=== PATIENT | male | born 1980 | race Caucasian/White ===

== ENCOUNTER 2019-01-18 18:32 | Emergency (ER) | payer BC, OTHER ==
[2019-01-18] MEDS ORDERED: Acetaminophen/oxyCODONE 325-5 MG Tab PO ONE (18:49)
--- NOTE | 2019-01-18 19:17 | EDM.PDOC ---
ED HPI GENERAL MEDICAL PROBLEM - General Chief Complaint: Upper Extremity Injury/Pain Stated Complaint: CUT POINTER FINGER RIGHT HAND Time Seen by Provider: 01/18/19 18:36 Source of Information: Reports: Patient History Limitations: Reports: No Limitations - History of Present Illness INITIAL COMMENTS - FREE TEXT/NARRATIVE: 38-year-old male presents for evaluation and treatment of injury to the right pointer finger. Patient reports prior to arrival in the ER he was roping and had the rope wrapped around his hand. He states that they finger got caught in between the rope and the saddle horn. He has skin avulsion to the finger and is experiencing significant pain. Tetanus is up-to-date. Onset: Today Location: Reports: Upper Extremity, Right Right Finger-Index Pain Score (Numeric/FACES): 8 - Related Data Allergies Allergy/AdvReac Type Severity Reaction Status Date / Time No Known Allergies Allergy Verified 01/18/19 19:08 Home Meds: Home Meds Acetaminophen/oxyCODONE [Percocet 325-5 MG] 1 tab PO Q4HR PRN #20 tab 01/18/19 [ Rx] cephALEXin [Cephalexin] 500 mg PO BID #20 capsule 01/18/19 [Rx] Past Medical History - Past Health History Medical/Surgical History: Denies Medical/Surgical History Social & Family History - Tobacco Use Smoking Status *Q: Never Smoker Review of Systems - Review of Systems Review Of Systems: See Below Musculoskeletal: Reports: Hand Pain (Right hand second finger) Skin: Reports: Wound (Right second finger) Neurological: Denies: Numbness, Tingling ED EXAM, GENERAL - Physical Exam Exam: See Below Exam Limited By: No Limitations General Appearance: Alert, WD/WN, Mild Distress Respiratory/Chest: No Respiratory Distress Cardiovascular: Normal Peripheral Pulses, Regular Rate, Rhythm Peripheral Pulses: 3+: Radial (R) Extremities: Normal Range of Motion (Patient has full range of motion to the right hand second finger, able to flex and extend the finger.), Normal Capillary Refill Neurological: Alert, Oriented, Normal Cognition Psychiatric: Normal Affect, Normal Mood Skin Exam: Warm, Dry, Normal Color, Wound/Incision (Approximately 4 cm by 2 cm skin avulsion to the right hand second finger lateral aspect on the radial side over the middle phalanx and DIP joint) Course - Vital Signs Last Recorded V/S: Last Vital Signs Temp 98.1 F 06/13/19 18:39 Pulse 82 01/18/19 18:39 Resp 18 01/18/19 18:39 BP 136/91 H 01/18/19 18:39 Pulse Ox 100 01/18/19 18:39 - Orders/Labs/Meds Meds: Medications Discontinued Medications Generic Name Dose Route Start Last Admin Trade Name Freq PRN Reason Stop Dose Admin Oxycodone/Acetaminophen 1 tab 01/18/19 18:49 01/18/19 19:07 Percocet 325-5 Mg PO 01/18/19 18:50 1 tab ONETIME ONE Administration - Radiology Interpretation Free Text/Narrative:: X-ray of the right hand shows no acute fractures or dislocations. Soft tissue injury evident. Formal radiology read pending. - Re-Assessments/Exams Free Text/Narrative Re-Assessment/Exam: 01/18/19 20:25 I reviewed the x-ray results with the patient. Patient reports tetanus is up-to-date. I will place him on antibiotics as this is a significant skin avulsion. Recommend follow-up. Unfortunately, with the avulsion there is nothing to suture as sutures will not give any benefit to this wound. Will discharge home. Discharge instructions as documented. Departure - Departure Time of Disposition: 20:37 Disposition: Home, Self-Care 01 Condition: Fair Clinical Impression: Avulsion of skin of finger - Discharge Information *PRESCRIPTION DRUG MONITORING PROGRAM REVIEWED*: No *COPY OF PRESCRIPTION DRUG MONITORING REPORT IN PATIENT LUCIAN: No Prescriptions: Acetaminophen/oxyCODONE [Percocet 325-5 MG] 1 tab PO Q4HR PRN #20 tab PRN Reason: Pain cephALEXin [Cephalexin] 500 mg PO BID #20 capsule Instructions: Nail Bed Injury, [id number] Referrals: PCP,None [Primary Care Provider] - Mila Youngblood PA-C [Physician Civil Laboratory Technician] - Forms: ED Department Discharge Additional Instructions: you were given medication in the ER that can affect your ability to drive and operate machinery. Do not drive or operate machinery within 10 hours of taking prescription narcotic pain medication. change the dressing daily. Wash with gentle soap and water twice a day. Monitor the wound for signs of infection such as increased swelling, pus or redness. Present to clinic or the ER should these develop. Follow-up with family medicine in 1 week for recheck of your finger. Recommend Mila Youngblood or Mally Dodson at the [facility]. Call [phone] to schedule with one of these providers. [id number] ibuprofen as needed for pain. May take up to 3200 mg of ibuprofen 1 day. For pain not relieved by ibuprofen may take Percocet 1-2 tabs every 4-6 hours. Percocet is habit-forming, take as few of these as needed to control your pain. Please return the ER if your symptoms change or worsen.
--- NOTE | 2019-01-19 07:13 | CR ---
Right hand: Four views of the right hand were obtained. Comparison: No previous hand study. Soft tissue injury is seen within the distal second finger. No fracture, dislocation or other bony abnormality is seen. Impression: 1. Soft tissue injury within the distal second finger. 2. No bony abnormality is seen on right hand exam. Diagnostic code #2
== END 2019-01-18 20:56 | disposition home or self-care (01) ==
LOC: JD.ED 18:32
DX: S61.200A Unspecified open wound of right index finger without damage to nail, initial encounter (principal); W23.1XXA Caught, crushed, jammed, or pinched between stationary objects, initial encounter
CPT/HCPCS: 73130; 99283; A9270